=== PATIENT | male | born 1965 | race American Indian/Alaskan Native ===

== ENCOUNTER 2020-03-08 08:58 | Emergency (ER) | payer OTHER ==
[2020-03-08 09:04] VITALS: BP 183/104
--- NOTE | 2020-03-08 10:59 | Emergency Department Report ---
Abscess Boil HPI - HPI Chief Complaint: Skin/Abscess/Foreign Body Stated Complaint: POSS SPIDER BITE/PAIN Time Seen by Provider: 03/08/20 10:11 Duration: 1 Week Location: Back Severity: Mild History: Yes Pain, Yes Purulent Drainage, No Fever, No Numbness, No Foreign Body, No Previous History, No Insect Bite HPI: This is a very pleasant 55-year-old male presents the emergency department with a chief complaint of an abscess to the left mid back. Patient reports has been there for the past week. He thinks a spider may have bit him. 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 He reports a friend tried to squeeze it and some pus came out. He denies any associated fevers, chills, night sweats, headache, dizziness, blurry vision, nausea,, diarrhea, chest pain or shortness of breath or any other associated symptoms. Home Medications: Previous Rx's Medication Instructions Recorded Last Taken Type Sulfamethoxazole/Trimethoprim 1 each PO BID #20 tablet 03/08/20 Unknown Rx [Bactrim DS TAB] Allergies/Adverse Reactions: Allergies Allergy/AdvReac Type Severity Reaction Status Date / Time No Known Allergies Allergy Unverified 03/08/20 09:00 ED Review of Systems ROS: Stated complaint: POSS SPIDER BITE/PAIN Other details as noted in HPI Comment: All other systems reviewed and negative Constitutional: denies: chills, fever Eyes: denies: eye pain, eye discharge, vision change ENT: denies: ear pain, throat pain Respiratory: denies: cough, shortness of breath, wheezing Cardiovascular: denies: chest pain, palpitations Endocrine: no symptoms reported Gastrointestinal: denies: abdominal pain, nausea, diarrhea Genitourinary: denies: urgency, dysuria Musculoskeletal: denies: back pain, joint swelling, arthralgia Skin: as per HPI, other. denies: rash, lesions Neurological: denies: headache, weakness, paresthesias Psychiatric: denies: anxiety, depression Hematological/Lymphatic: denies: easy bleeding, easy bruising ED Past Medical Hx - Past Medical History Hx Hypertension: Yes Hx Congestive Heart Failure: Yes - Surgical History Past Surgical History?: No - Social History Smoking Status: Never Smoker Substance Use Type: None - Medications Home Medications: Home Medications Medication Instructions Recorded Confirmed Last Taken Type Sulfamethoxazole/Trimethoprim 1 each PO BID #20 tablet 03/08/20 Unknown Rx [Bactrim DS TAB] ED Abscess Boil Physical Exam - Exam General: Vital signs noted. No distress. Alert and acting appropriately. Size: 2 cm Exam: Yes Tenderness, Yes Fluctuance, Yes Surrounding Cellulites/Erythema, Yes Normal Neurologic Exam, Yes Normal Circulation, No Lymphangitis, No Crepitation, No Heart Murmur Exam: GENERAL APPEARANCE: Well-developed, well-nourished, no acute distress. HEENT: Normocephalic and atraumatic. No scleral icterus. Pupils are equal, round, and reactive to light and accommodation. No conjunctival injection is noted. Oropharynx is clear. Mouth revealed good dentition, no lesions. Tympanic membranes are clear. NECK: Supple. Trachea is midline. No evidence of thyroid enlargement. No lymphadenopathy or tenderness. CHEST: Symmetric. Nontender to palpation. LUNGS: Breath sounds are equal and clear bilaterally. No wheezes, rhonchi, or rales. HEART: Regular rate and rhythm with normal S1 and S2. No murmurs, gallops, or rubs. BREASTS: Symmetrical. No skin or nipple retractions. No nipple discharges or masses. ABDOMEN: Soft, flat, and benign. No mass, tenderness, guarding, or rebound. No organomegaly or hernia. Bowel sounds are present. No CVA tenderness or flank mass. GENITOURINARY: Deferred. RECTAL: Deferred. EXTREMITIES: No cyanosis, clubbing, or edema. No lower extreme edema, negative Homans sign bilaterally. NEUROLOGIC: No focal sensory or motor deficits are noted. Gait is normal. Cranial nerves II through XII are intact. De ep tendon reflexes are intact. PSYCHIATRIC: The patient is awake, alert, and oriented x3. Recent and remote memory is intact. Appropriate mood and affect. SKIN: See above. LYMPHATICS: No cervical, axillary, or groin adenopathy is noted. I & D Note - I & D Note I & D Note: The wound was first cleaned with Betadine prep, then injected 1% lidocaine without epinephrine, I then used an 11 blade to make 1/2 cm incision over the area of most fluctuance. A large amount of copious purulent discharge was expressed. Patient tolerated this well. I then irrigated the wound and probed for any loculations. I then used quarter inch iodoform packing approximately 5 cm was placed in the wound. A clean dressing was then placed on the wound. Patient tolerated this well. Less than 5 mL of blood loss. ED Course Vital Signs 03/08/20 09:03 Temperature 99.0 F Pulse Rate 105 H Respiratory 18 Rate Blood Pressure 183/104 O2 Sat by Pulse 97 Oximetry Critical care attestation.: If time is entered above; I have spent that time in minutes in the direct care of this critically ill patient, excluding procedure time. ED Medical Decision Making - Medical Decision Making Incision and drainage was performed successfully. Patient tolerated this very well. He also had an additional 1 cm abscess at the base of his skull that was not fluctuant or ready to be drained at this time. I will give him antibiotics and recommend warm compresses to facilitate spontaneous drainage. Recommended he follow-up with his primary care doctor or return to the emergency department for packing removal in 2 to 3 days. Recommend warm compresses 5 minutes every hour. We will send him home with Bactrim and return precautions for any change or worsening symptoms. He verbalized understand the diagnosis, treatment plan and follow-up instructions and all his questions were answered. - Differential Diagnosis Abscess, insect bite, cellulitis ED Disposition Clinical Impression: Abscess of upper back excluding scapular region Disposition: DC-01 TO HOME OR SELFCARE Is pt being admited?: No Condition: Stable Instructions: Incision and Drainage, Care After Prescriptions: Sulfamethoxazole/Trimethoprim [Bactrim DS TAB] 1 each PO BID #20 tablet Referrals: PRIMARY CARE, [Primary Care Provider] - 3-5 Days Time of Disposition: 10:58
== END 2020-03-08 11:35 | disposition home or self-care (01) ==
LOC: ED 08:58
DX: L02.212 Cutaneous abscess of back [any part, except buttock and flank] (principal); I10 Essential (primary) hypertension; Z79.899 Other long term (current) drug therapy
CPT/HCPCS: 99282